=== PATIENT | female | born 1980 | race African-American/Black ===

== ENCOUNTER 2016-11-17 18:46 | Emergency (ER) | payer OTHER ==
[~2016-11-17] VITALS: Ht 160 cm; Wt 80.7 kg
[~2016-11-17 18:46] MED LIST: ALDACTONE25 MG PO; AMLODIPINE BESY10 MG PO; AMOXICILLIN875 MG PO; AZITHROMYCIN 2250 MG PO; BENTYL 20 MG TA20 M1 PO; CATAPRES0.2 MG; CATAPRES0.2 MG PO; CHLORTHALIDONE50 MG PO; CLEOCIN HCL150 MG PO; CLONIDINE HCL0.2 M2 PO; CLONIDINE0.1; COZAAR 25 MG TA25 M1 PO; DOXYCYCLINE 10100 MG PO; ESTRACE0.5 MG PO; FLAGYL500 MG PO; FLEXERIL PO; FLONASE 0.05%50 MCG NASAL; HYDROCHLOROTHIA25 M1 PO; HYDROCHLOROTHIA50 MG PO; HYDROCODONE-AP1 EAC6 PO; IBUPROFEN 600600 M1 PO; IBUPROFEN 800800 M1 PO; IBUPROFEN 800800 MG PO; LOTRISONE CREAM15 GM TP; NAPROSYN500 MG PO; POTASSIUM20 PO; PROAIR HFA8.5 GM IH; PROZAC; ULTRAM 50MG TAB50 MG PO; ZPAK PO
[2016-11-17 19:25] VITALS: BP 238/145
== END 2016-11-17 19:26 | disposition home or self-care (01) ==
LOC: ER 18:46
DX: Z48.01 Encounter for change or removal of surgical wound dressing (principal); I10 Essential (primary) hypertension; F10.99 Alcohol use, unspecified with unspecified alcohol-induced disorder; Z88.5 Allergy status to narcotic agent; Z88.8 Allergy status to other drugs, medicaments and biological substances

== ENCOUNTER 2018-02-15 08:59 | Emergency (ER) | payer OTHER ==
[~2018-02-15] VITALS: Ht 157.5 cm; Wt 89.8 kg
[~2018-02-15 08:59] MED LIST changes: +CARVEDILOL12.5 MG PO; +NORCO 5-325 TA1 EACH PO
[2018-02-15] MEDS ORDERED: ALDACTONE25 MG PO (09:19)
[2018-02-15] MEDS ORDERED: CLONIDINE HCL0.2 M2 PO (12:55)
[2018-02-15] MEDS ORDERED: NAPROSYN500 MG PO (12:55)
[2018-02-15 13:21] VITALS: BP 172/94
== END 2018-02-15 13:22 | disposition home or self-care (01) ==
LOC: ER 08:59
DX: S83.91XA Sprain of unspecified site of right knee, initial encounter (principal); I10 Essential (primary) hypertension; I16.0 Hypertensive urgency; F17.210 Nicotine dependence, cigarettes, uncomplicated; Z88.5 Allergy status to narcotic agent; Z88.6 Allergy status to analgesic agent; X58.XXXA Exposure to other specified factors, initial encounter; Y93.89 Activity, other specified; Y92.89 Other specified places as the place of occurrence of the external cause; Y99.8 Other external cause status

== ENCOUNTER 2018-04-20 09:08 | Emergency (ER) | payer OTHER ==
[~2018-04-20] VITALS: Ht 157.5 cm; Wt 85.7 kg
[2018-04-20 09:21] VITALS: BP 176/124
[2018-04-20] MEDS ORDERED: PREDNISONE 20 M20 MG PO (10:00)
[2018-04-20] MEDS ORDERED: VALACYCLOVIR1000 MG PO (10:00)
[2018-04-20] MEDS ORDERED: LIQUITEARS15 ML OPHTHALMIC (10:02)
== END 2018-04-20 10:40 | disposition home or self-care (01) ==
LOC: ER 09:08
DX: G51.0 Bell's palsy (principal); H83.01 Labyrinthitis, right ear; I10 Essential (primary) hypertension; F17.210 Nicotine dependence, cigarettes, uncomplicated; Z88.6 Allergy status to analgesic agent; Z88.5 Allergy status to narcotic agent; Z91.041 Radiographic dye allergy status; Z88.8 Allergy status to other drugs, medicaments and biological substances

== ENCOUNTER 2019-01-28 07:20 | Emergency (ER) | payer OTHER ==
[~2019-01-28] VITALS: Ht 160 cm; Wt 85.3 kg
[~2019-01-28 07:20] MED LIST changes: +LIQUITEARS15 ML OPHTHALMIC; +PREDNISONE 20 M20 MG PO; +VALACYCLOVIR1000 MG PO
[2019-01-28 08:21] LABS: HEMATOCRIT 43.8 % (37.0-47.0); HEMOGLOBIN 15.1 gm/dL (12.0-15.0); MCH 32.5 pg (26.0-34.0); MCHC 34.4 g/dL (28.0-37.0); MCV 94.5 fL (80.0-100.0); RBC 4.63 mil/uL (4.20-5.00); WBC 6.6 thou/uL (4.0-11.0)
[2019-01-28 08:32] LABS: CALCIUM 9.5 mg/dL (8.5-10.1); CREATININE 0.8 mg/dL (0.6-1.0); POTASSIUM 3.1 mmol/L (3.5-5.1)
[2019-01-28 08:38] LABS: ALBUMIN 3.6 g/dL (3.4-5.0); TOTAL BILIRUBIN 0.7 mg/dL (<0.1-1.0)
[2019-01-28 11:05] VITALS: BP 215/112
== END 2019-01-28 11:07 | disposition home or self-care (01) ==
LOC: ER 07:20
PROVIDERS: Emergency Medicine
DX: K59.00 Constipation, unspecified (principal); I10 Essential (primary) hypertension; F17.210 Nicotine dependence, cigarettes, uncomplicated; Z88.5 Allergy status to narcotic agent; Z88.6 Allergy status to analgesic agent; Z88.8 Allergy status to other drugs, medicaments and biological substances

== ENCOUNTER 2019-08-05 22:34 | Emergency (ER) | payer BC, OTHER ==
[~2019-08-05] VITALS: Ht 160 cm; Wt 86.2 kg
[2019-08-05 22:34] VITALS: BP 243/131
[2019-08-05] MEDS ORDERED: ECZEMA ANTI-I28.3 GM TOP (23:27)
== END 2019-08-05 23:29 | disposition home or self-care (01) ==
LOC: ER 22:34
DX: R21 Rash and other nonspecific skin eruption (principal); I10 Essential (primary) hypertension; F17.210 Nicotine dependence, cigarettes, uncomplicated; Z98.890 Other specified postprocedural states; Z88.6 Allergy status to analgesic agent; Z88.8 Allergy status to other drugs, medicaments and biological substances

== ENCOUNTER 2019-08-19 22:30 | Emergency (ER) | payer BC, OTHER ==
[~2019-08-19] VITALS: Ht 160 cm; Wt 81.7 kg
[~2019-08-19 22:30] MED LIST changes: +ECZEMA ANTI-I28.3 GM TOP
[2019-08-20 00:02] LABS: AMP/METHAMP Negative (Negative); BARBITURATES Negative (Negative); BENZODIAZEPINES Negative (Negative); COCAINE Negative (Negative); METHADONE Negative (Negative); OPIATES Negative (Negative); PCP Negative (Negative)
[2019-08-20 00:28] LABS: ABSOLUTE NEUTROPHILS 3.4 thou/uL (1.4-8.2); BASOPHILS 0.9 % (0.0-2.0); EOSINOPHILS 3.7 % (0.0-3.0); HEMATOCRIT 46.1 % (37.0-47.0); HEMOGLOBIN 15.1 gm/dL (12.0-15.0); MCH 32.7 pg (26.0-34.0); MCHC 32.8 g/dL (28.0-37.0); MCV 99.7 fL (80.0-100.0); MONOCYTES 6.8 % (1.0-8.0); PLATELET COUNT 191 thou/uL (150-400); POLYS 57.6 % (36.0-66.0); RBC 4.62 mil/uL (4.20-5.00); RDW 13.4 % (10.5-14.5); WBC 5.8 thou/uL (4.0-11.0)
[2019-08-20 00:38] LABS: ANION GAP 10 mmol/L (7-16); BUN 17 mg/dL (7-18); CALCIUM 9.3 mg/dL (8.5-10.1); CHLORIDE 103 mmol/L (98-107); CO2 28 mmol/L (21-32); CREATININE 0.9 mg/dL (0.6-1.0); GLUCOSE 106 mg/dL (74-106); POTASSIUM 3.5 mmol/L (3.5-5.1); SODIUM 141 mmol/L (136-145)
[2019-08-20 00:48] LABS: ALBUMIN 3.6 g/dL (3.4-5.0); MAGNESIUM 1.9 mg/dL (1.8-2.4); SGOT 17 U/L (15-37); SGPT 13 U/L (30-65); TOTAL BILIRUBIN 0.5 mg/dL (<0.1-1.0); TOTAL PROTEIN 7.3 g/dL (6.4-8.2); TROPONIN-I <0.06 ng/mL (<0.06)
[2019-08-20] MEDS ORDERED: NAPROSYN500 MG PO (01:15)
[2019-08-20] MEDS ORDERED: NORFLEX100 MG PO (01:15)
[2019-08-20] MEDS ORDERED: TRAMADOL 50 MG50 MG PO (01:15)
[2019-08-20 02:24] VITALS: BP 151/92
--- NOTE | 2019-08-20 09:18 | EKG ---
[address] [address] [place] [address] ELECTROCARDIOGRAM REPORT Name: KELLY BARKSDALE Room #: DEP [facility]EN[facility]ouch[facility] [id number] Admission: 08/19/19 Attend Phys: Discharge: 08/20/19 Date of : 78 Report #: [id number] THIS REPORT FOR: //name// [facility] ED Test Date: 2019-08-20 Test Time: 00:00:29 Pat Name: KELLY BARKSDALE Department: Room: Gender: F Outlet Manager: tiffany : 1980 Requested By: Jose Gandhi Order Number: [id number] MD: Rafa Sanchez Measurements Intervals [place] Rate: 79 P: [place]: QRS: 12 QRSD: 85 T: -12 QT: 405 QTc: 465 Interpretive Statements Sinus rhythm Poor R wave progression Voltage criteria for LVH Compared to ECG 03/06/2015 22:46:04 No significant change was found Electronically Signed On 08-20-2019 9:18:21 CDT by Rafa Sanchez [email or web address] <ELECTRONICALLY SIGNED> By: Rafa Sanchez MD, [facility] 08/20/19 0918 0000 0000 Rafa Sanchez MD, FACC /EPI
== END 2019-08-20 02:45 | disposition home or self-care (01) ==
LOC: ER 22:30
PROVIDERS: Emergency Medicine
DX: S86.811A Strain of other muscle(s) and tendon(s) at lower leg level, right leg, initial encounter (principal); I10 Essential (primary) hypertension; F17.210 Nicotine dependence, cigarettes, uncomplicated; Z91.14 Patient's other noncompliance with medication regimen; Z98.890 Other specified postprocedural states; Z88.5 Allergy status to narcotic agent; Z88.6 Allergy status to analgesic agent; Z88.8 Allergy status to other drugs, medicaments and biological substances; X50.0XXA Overexertion from strenuous movement or load, initial encounter; Y92.89 Other specified places as the place of occurrence of the external cause; Y93.89 Activity, other specified; Y99.0 Civilian activity done for income or pay

== ENCOUNTER 2019-10-24 19:17 | Emergency (ER) | payer OTHER ==
[~2019-10-24] VITALS: Ht 160 cm; Wt 83.9 kg
[~2019-10-24 19:17] MED LIST changes: +NORFLEX100 MG PO; +TRAMADOL 50 MG50 MG PO
[2019-10-24 19:42] LABS: URINE BILIRUBIN NEGATIVE (Negative); URINE BLOOD 2+ (Negative); URINE CLARITY CLEAR; URINE COLOR YELLOW; URINE GLUCOSE-RANDOM* NEGATIVE (Negative); URINE KETONES NEGATIVE (Negative); URINE LEUKOCYTES-REFLEX NEGATIVE (Negative); URINE NITRITE-REFLEX NEGATIVE (Negative); URINE PROTEIN (DIPSTICK) 1+ (Negative); URINE UROBILINOGEN 0.2 E.U./dl (0.2-1.0)
[2019-10-24 19:47] LABS: SQUAMOUS >10 Many /LPF (0-3)
[2019-10-24 19:48] LABS: BACTERIA-REFLEX 1-9 Few /HPF (None Seen); CASTS None Seen /LPF (None Seen); CRYSTALS None Seen /LPF (None Seen); URINE RBC 3-10 Few /HPF (0-2); URINE WBC-REFLEX 0-5 Rare /HPF (0-5)
[2019-10-24] MEDS ORDERED: FLAGYL500 M1 PO (21:29)
[2019-10-24 22:45] VITALS: BP 195/84
== END 2019-10-24 22:45 | disposition home or self-care (01) ==
LOC: ER 19:17
PROVIDERS: Emergency Medicine
DX: N76.0 Acute vaginitis (principal); I10 Essential (primary) hypertension; F17.210 Nicotine dependence, cigarettes, uncomplicated; Z98.890 Other specified postprocedural states; Z88.5 Allergy status to narcotic agent; Z88.6 Allergy status to analgesic agent; Z88.8 Allergy status to other drugs, medicaments and biological substances

== ENCOUNTER 2021-06-23 20:08 | Emergency (ER) | payer OTHER ==
[~2021-06-23] VITALS: Ht 160 cm; Wt 83.9 kg
[~2021-06-23 20:08] MED LIST changes: +FLAGYL500 M1 PO
[2021-06-23 20:16] VITALS: BP 209/139
[2021-06-23 20:44] LABS: URINE BILIRUBIN NEGATIVE (Negative); URINE BLOOD 2+ (Negative); URINE CLARITY CLEAR; URINE COLOR YELLOW; URINE GLUCOSE-RANDOM* NEGATIVE (Negative); URINE KETONES NEGATIVE (Negative); URINE LEUKOCYTES-REFLEX 1+ (Negative); URINE NITRITE-REFLEX NEGATIVE (Negative); URINE PROTEIN (DIPSTICK) TRACE (Negative); URINE SPECIFIC GRAVITY 1.015 (1.005-1.035); URINE UROBILINOGEN 0.2 E.U./dl (0.2-1.0)
[2021-06-23 21:00] LABS: BACTERIA-REFLEX 1-9 Few /HPF (None Seen); CRYSTALS None Seen /LPF (None Seen); HYALINE CASTS 0-3 Few /LPF (None Seen); MUCUS 0-3 Light strn/LPF (None Seen); SQUAMOUS 4-10 Moderate /LPF (0-3); URINE RBC 3-10 Few /HPF (NONE SEEN); WBC CLUMPS Few (None Seen)
[2021-06-23] MEDS ORDERED: CEPHALEXIN500 MG PO (21:10)
[2021-06-23] MEDS ORDERED: DIFLUCAN150 M1 PO (21:10)
== END 2021-06-23 22:20 | disposition home or self-care (01) ==
LOC: ER 20:08
PROVIDERS: Nurse Practitioner Family
DX: N39.0 Urinary tract infection, site not specified (principal); I10 Essential (primary) hypertension; F17.210 Nicotine dependence, cigarettes, uncomplicated; Z98.890 Other specified postprocedural states; Z79.1 Long term (current) use of non-steroidal anti-inflammatories (NSAID); Z79.899 Other long term (current) drug therapy; Z88.5 Allergy status to narcotic agent; Z88.6 Allergy status to analgesic agent; Z88.8 Allergy status to other drugs, medicaments and biological substances